=== PATIENT | male | born 1945 | race Caucasian/White ===

== ENCOUNTER 2018-06-11 14:10 | Observation (INO) | payer MEDICARE ==
[~2018-06-11] VITALS: Ht 170.2 cm; Wt 93.7 kg
[~2018-06-11 14:10] MED LIST: CARV3.12 PO; CHOL100040 PO; ERGO500014 PO; EZET10TA26 PO; FINA5TAB41 PO; FISH1CAP63 PO; FLUO40CA49 PO; FURO20TA4 PO; URSO300C4 PO; WARF-57 PO; WARF7.5T49 PO
[2018-06-11] MEDS ORDERED: METHYLPREDNISOLONE SOD SUCC 125MG/2ML VIAL ONE (14:35)
[2018-06-11] MEDS ORDERED: DIAZEPAM 2 MG TAB ONE ×2 (14:36→17:23)
[2018-06-11 17:18] LABS: BASOPHILS % (AUTO) 0.2 % (0.0-5.0); EOSINOPHILS % (AUTO) 0.4 % (0.0-8.0); HEMATOCRIT 40.5 % (42-54); LYMPHOCYTES % (AUTO) 5.6 % (21.0-51.0); MEAN CORPUSCULAR HEMOGLOBIN 30.1 pg (27.0-33.0); MEAN CORPUSCULAR HGB CONC 33.7 g/dL (32.0-36.0); MEAN CORPUSCULAR VOLUME 89.4 fL (79-99); NEUTROPHILS % (AUTO) 90.8 % (40.0-77.0); PLATELET COUNT (AUTO) 376 K/uL (130-400); RED BLOOD CELL COUNT(AUTO) 4.53 MIL/uL (4.50-6.20); RED CELL DISTRIBUTION WIDTH 16.7 % (11.0-15.5); WHITE BLOOD COUNT (AUTO) 11.6 K/uL (4.8-10.8)
[2018-06-11 17:34] LABS: CREATININE 0.9 mg/dL (0.5-1.5); POTASSIUM 4.5 mmol/L (3.5-5.1)
[2018-06-11 17:39] LABS: BILIRUBIN,TOTAL 0.5 mg/dL (0.2-1.0); TOTAL PROTEIN, SERUM 7.6 g/dL (6.0-8.3)
[2018-06-11 17:41] LABS: APPEARANCE,URINE Clear (CLEAR); BILIRUBIN,URINE Negative (NEGATIVE); COLOR,URINE Yellow (YELLOW); GLUCOSE, URINE (UA) Negative (NEGATIVE); KETONES,URINE Negative (NEGATIVE); LEUKOCYTE ESTERASE ,URINE Negative (NEGATIVE); NITRATE,URINE Negative (NEGATIVE); OCCULT BLOOD,URINE Negative (NEGATIVE); PROTEIN,URINE Negative (NEGATIVE); UROBILINOGEN,URINE 0.2 mg/dL (0.2-1.0)
[2018-06-11] MEDS ORDERED: HYDRALAZINE HCL 20 MG/ML VIAL IV PRN (17:45)
[2018-06-11] MEDS ORDERED: ACETAMINOPHEN 325 MG TAB PO PRN (17:45)
[2018-06-11] MEDS ORDERED: MORPHINE SULFATE 2 MG/ML 1ML SYG IV PRN (17:45)
[2018-06-11] MEDS ORDERED: ONDANSETRON HCL 4 MG/2 ML VIAL IV PRN (17:45)
[2018-06-11] MEDS ORDERED: ACETAMINOPHEN-CODEINE 300/30MG TAB PO PRN (17:45)
[2018-06-11 18:39] LABS: ERYTHROCYTE SEDIMENTATION RATE 33 MM/HR (0-20)
[2018-06-11] MEDS: CARVEDILOL 3.125 MG TABLET PO SCH (21:00)
[2018-06-11 21:45] VITALS: BP 172/97
[2018-06-11] MEDS: FUROSEMIDE 20 MG TABLET PO SCH (22:55)
[2018-06-11] MEDS: URSODIOL 300 MG CAPSULE PO SCH (22:55)
[2018-06-11] MEDS: FAMOTIDINE/PF 20 MG/2 ML VIAL IV SCH (22:56)
[2018-06-11 23:00] VITALS: BP 144/77
[2018-06-12 03:00] VITALS: BP 156/83
[2018-06-12 05:43] LABS: HEMATOCRIT 40.5 % (42-54); MEAN CORPUSCULAR HEMOGLOBIN 29.6 pg (27.0-33.0); MEAN CORPUSCULAR HGB CONC 33.4 g/dL (32.0-36.0); MEAN CORPUSCULAR VOLUME 88.7 fL (79-99); NUCLEATED RED BLOOD CELLS 0.1 % (0.0-0.19); PLATELET COUNT (AUTO) 329 K/uL (130-400); RED BLOOD CELL COUNT(AUTO) 4.57 MIL/uL (4.50-6.20); RED CELL DISTRIBUTION WIDTH 16.7 % (11.0-15.5); WHITE BLOOD COUNT (AUTO) 7.1 K/uL (4.8-10.8)
[2018-06-12 05:52] LABS: INR 2.17 (0.85-1.15); PARTIAL THROMBOPLASTIN TIME 40.5 SEC (26.3-35.5); POTASSIUM 4.1 mmol/L (3.5-5.1); PROTHROMBIN TIME 22.4 SEC (9.6-11.6)
[2018-06-12 08:00] VITALS: BP 154/82
[2018-06-12] MEDS ORDERED: TRAM50TA4 PO (08:58)
[2018-06-12] MEDS ORDERED: FLUOXETINE HCL 20 MG CAPSULE PO SCH (09:00)
[2018-06-12] MEDS ORDERED: EZETIMIBE 10 MG TAB PO SCH (09:00)
[2018-06-12 11:00] VITALS: BP 149/73
[2018-06-12] MEDS: FUROSEMIDE 20 MG TABLET PO SCH (11:13)
[2018-06-12] MEDS: URSODIOL 300 MG CAPSULE PO SCH (11:13)
[2018-06-12] MEDS: CARVEDILOL 3.125 MG TABLET PO SCH (11:14)
[2018-06-12] MEDS: FAMOTIDINE/PF 20 MG/2 ML VIAL IV SCH (11:14)
[2018-06-12 16:00] VITALS: BP 151/80
[2018-06-12] MEDS ORDERED: Cholecalciferol (Vitamin D3) (Vitamin D3) 1,000 UNIT PO SCH (17:00)
[2018-06-12] MEDS ORDERED: FINASTERIDE 5 MG TABLET PO SCH (17:00)
[2018-06-12] MEDS ORDERED: WARFARIN SODIUM 5 MG TAB PO SCH (17:00)
[2018-06-12] MEDS ORDERED: FISH OIL 1000 MG/CAP PO SCH (21:00)
[2018-06-18] MEDS ORDERED: ERGOCALCIFEROL (VITAMIN D2) 50,000 UNIT CAPSULE PO SCH (09:00)
== END 2018-06-12 20:15 | disposition home or self-care (01) ==
LOC: EDH 14:10 → EDHIP 17:33 → 3BH 19:48
PROVIDERS: ADMIT Hospitalist; ATTEND Hospitalist
DX: M48.061 Spinal stenosis, lumbar region without neurogenic claudication (principal); M47.896 Other spondylosis, lumbar region; C34.90 Malignant neoplasm of unspecified part of unspecified bronchus or lung; E66.01 Morbid (severe) obesity due to excess calories; G62.9 Polyneuropathy, unspecified; I25.10 Atherosclerotic heart disease of native coronary artery without angina pectoris; I48.91 Unspecified atrial fibrillation; Z85.118 Personal history of other malignant neoplasm of bronchus and lung; Z87.891 Personal history of nicotine dependence; Z90.2 Acquired absence of lung [part of]; Z95.1 Presence of aortocoronary bypass graft; Z79.01 Long term (current) use of anticoagulants; Z88.8 Allergy status to other drugs, medicaments and biological substances; Z83.6 Family history of other diseases of the respiratory system; Z82.49 Family history of ischemic heart disease and other diseases of the circulatory system
CPT/HCPCS: 36415 ×2; 72148; 72170; 80048; 80053; 81003; 85025; 85027; 85610; 85651; 85730; 93005; 96374; 96376; 97116; 97161; 99284; G0378 ×27; G8978; G8979; G8980; G8981; G8982; G8983; J2930; J3490 ×2

== ENCOUNTER 2018-09-28 16:18 | Inpatient (IN) | payer MEDICARE ==
[~2018-09-28] VITALS: Ht 170.2 cm; Wt 87.7 kg
[~2018-09-28 16:18] MED LIST changes: +AMLO5TAB4 PO; +BENZ1LOZ68 MM; -CHOL100040 PO; -FISH1CAP63 PO; +IPRA3AMP24 IH; +LOSA50TA64 PO; +SENN-183 PO; -WARF-57 PO; -WARF7.5T49 PO
[2018-09-28 16:53] LABS: APPEARANCE,URINE Clear (CLEAR); BILIRUBIN,URINE Negative (NEGATIVE); COLOR,URINE Yellow (YELLOW); GLUCOSE, URINE (UA) Negative (NEGATIVE); KETONES,URINE Negative (NEGATIVE); LEUKOCYTE ESTERASE ,URINE Negative (NEGATIVE); NITRATE,URINE Negative (NEGATIVE); OCCULT BLOOD,URINE Negative (NEGATIVE); PH,URINE 6.5 (5.0-8.0); PROTEIN,URINE Negative (NEGATIVE)
[2018-09-28 17:20] LABS: BASOPHILS % (AUTO) 0.3 % (0.0-5.0); EOSINOPHILS % (AUTO) 1.3 % (0.0-8.0); HEMATOCRIT 30.1 % (42-54); LYMPHOCYTES % (AUTO) 28.4 % (21.0-51.0); MEAN CORPUSCULAR HEMOGLOBIN 24.6 pg (27.0-33.0); MEAN CORPUSCULAR HGB CONC 31.6 g/dL (32.0-36.0); MEAN CORPUSCULAR VOLUME 77.8 fL (79-99); MONOCYTES % (AUTO) 48.9 % (3.0-13.0); NEUTROPHILS % (AUTO) 21.1 % (40.0-77.0); NUCLEATED RED BLOOD CELLS 2.7 % (0.0-0.19); RED BLOOD CELL COUNT(AUTO) 3.87 MIL/uL (4.50-6.20); WHITE BLOOD COUNT (AUTO) 1.4 K/uL (4.8-10.8)
[2018-09-28] MEDS ORDERED: ACETAMINOPHEN 325 MG TAB ONE (17:37)
[2018-09-28 17:47] LABS: CREATININE 0.8 mg/dL (0.5-1.5); POTASSIUM 3.2 mmol/L (3.5-5.1)
[2018-09-28 17:52] LABS: ALBUMIN 2.5 g/dL (3.5-5.0); BILIRUBIN,TOTAL 0.3 mg/dL (0.2-1.0); TOTAL PROTEIN, SERUM 6.8 g/dL (6.0-8.3)
[2018-09-28 17:58] LABS: PLATELET COUNT (AUTO) 314 K/uL (130-400)
[2018-09-28] MEDS ORDERED: ZOSYN 3.375GM+NS 50ML 50 ML IV ONE (18:43)
[2018-09-28] MEDS ORDERED: IPRATROPIUM/ALBUTEROL SULFATE 3 ML SOLUTION IH ONE (18:47)
[2018-09-28] MEDS: IPRATROPIUM/ALBUTEROL SULFATE 3 ML SOLUTION IH SCH ×2 (19:00→21:47)
[2018-09-28] MEDS ORDERED: VANCOMYCIN PROTOCOL PER PHARMACY IV SCH (19:00)
[2018-09-28] MEDS ORDERED: SODIUM CHLORIDE 0.9% 1000ML 1,000 ML IV SCH (19:00)
[2018-09-28 21:18] VITALS: BP 121/63
[2018-09-28] MEDS: VANCOMYCIN 1GM+NS 250ML 250 ML IV SCH (22:33)
[2018-09-28] MEDS: TBO-FILGRASTIM 480 MCG/0.8 ML ML SQ SCH (22:33)
[2018-09-29 00:22] VITALS: BP 134/59
[2018-09-29] MEDS: ZOSYN 3.375GM+NS 50ML 50 ML IV SCH ×3 (01:39→17:00)
[2018-09-29] MEDS: IPRATROPIUM/ALBUTEROL SULFATE 3 ML SOLUTION IH SCH ×6 (03:00→21:56)
[2018-09-29 04:00] VITALS: BP 124/64
[2018-09-29 08:00] VITALS: BP 135/67
[2018-09-29] MEDS: ONDANSETRON HCL 4 MG/2 ML VIAL IVP PRN ×3 (08:58→20:55)
[2018-09-29] MEDS: VANCOMYCIN 1GM+NS 250ML 250 ML IV SCH ×2 (08:58→20:51)
[2018-09-29 08:59] LABS: BASOPHILS % (AUTO) 0.5 % (0.0-5.0); EOSINOPHILS % (AUTO) 0.2 % (0.0-8.0); HEMATOCRIT 29.8 % (42-54); LYMPHOCYTES % (AUTO) 11.4 % (21.0-51.0); MEAN CORPUSCULAR HEMOGLOBIN 24.9 pg (27.0-33.0); MEAN CORPUSCULAR HGB CONC 32.2 g/dL (32.0-36.0); MEAN CORPUSCULAR VOLUME 77.4 fL (79-99); MONOCYTES % (AUTO) 35.5 % (3.0-13.0); NEUTROPHILS % (AUTO) 52.4 % (40.0-77.0); PLATELET COUNT (AUTO) 271 K/uL (130-400); RED BLOOD CELL COUNT(AUTO) 3.85 MIL/uL (4.50-6.20); RED CELL DISTRIBUTION WIDTH 19.2 % (11.0-15.5); WHITE BLOOD COUNT (AUTO) 2.1 K/uL (4.8-10.8)
[2018-09-29] MEDS ORDERED: ERGO50CA PO (10:40)
[2018-09-29] MEDS ORDERED: NAPR250T4 PO (10:40)
[2018-09-29] MEDS ORDERED: CLOT15C TP (10:40)
[2018-09-29] MEDS ORDERED: LACT10SO9 PO (10:40)
[2018-09-29 11:58] LABS: BAND NEUTROPHILS % (MANUAL) 19 % (0-2); BASOPHILS % (MANUAL) 1 % (0-2); EOSINOPHILS % (MANUAL) 1 % (1-6); LYMPHOCYTES % (MANUAL) 27 % (22-44); MAN.DIFF COMMENT-IMPRESSION MANUAL DIFFERENTIAL; MONOCYTES % (MANUAL) 28 % (2-9); SEGMENTED NEUTROPHILS % 24 % (40-70)
[2018-09-29 11:59] LABS: PLATELET MORPHOLOGY COMMENT ADEQUATE
[2018-09-29 12:00] VITALS: BP 104/66
--- NOTE | 2018-09-29 14:07 | NUR ---
PATIENT APPEARS SOB AND TACHYPNEIC AFTER AMBULATION BUT DID NOT DESATURATE. PATIENT REFUSED O2 ON STANDBY TO RELIEVE SOB DURING AMBULATION. Addendum: 09/29/18 at 1410 by RT AMAN RT Amended: Links added.
[2018-09-29 16:00] VITALS: BP 123/63
--- NOTE | 2018-09-29 16:47 | NUR ---
INITIAL: Met with pt this afternoon to discuss dcp. Prior to admission pt was living w spouse, he is independent w ambulation and ADLs. He does not own any DME or receive services. Per pt he feels safe and comfortable to return home at [place]. CM to continue to follow and wait for Md recommendations. Addendum: 09/29/18 at 1653 by VENTURA HOLDER Amended: Links added.
[2018-09-29] MEDS: FINASTERIDE 5 MG TABLET PO SCH (18:11)
[2018-09-29] MEDS: TBO-FILGRASTIM 480 MCG/0.8 ML ML SQ SCH (18:11)
[2018-09-29] MEDS: CARVEDILOL 3.125 MG TABLET PO SCH (20:51)
[2018-09-29 21:31] VITALS: BP 139/64
[2018-09-30] VITALS (7 sets, daily range): BP systolic 114–163; BP diastolic 59–77
[2018-09-30] MEDS: ZOSYN 3.375GM+NS 50ML 50 ML IV SCH ×3 (01:58→17:47)
[2018-09-30] MEDS: IPRATROPIUM/ALBUTEROL SULFATE 3 ML SOLUTION IH SCH ×7 (02:04→22:45)
[2018-09-30 04:51] LABS: CREATININE 0.8 mg/dL (0.5-1.5); MAGNESIUM 1.3 mg/dL (1.80-2.40)
[2018-09-30 05:15] LABS: POTASSIUM 2.6 mmol/L (3.5-5.1)
[2018-09-30] MEDS ORDERED: LIDOCAINE HCL-MPF 1% 2ML VIAL IVP PRN (07:30)
[2018-09-30] MEDS ORDERED: POTASSIUM CHLORIDE 10% ELIXIR 20 MEQ/15 ML UDCUP PO PRN (07:30)
[2018-09-30] MEDS: POTASSIUM CHLORIDE 20 MEQ ERTAB PO PRN ×3 (08:22→20:28)
[2018-09-30] MEDS: CARVEDILOL 3.125 MG TABLET PO SCH ×2 (08:24→20:29)
[2018-09-30] MEDS: POTASSIUM CHLORIDE 20MEQ/100ML 100 ML IV PRN (08:24)
[2018-09-30] MEDS: ERGOCALCIFEROL PO SCH (08:25)
[2018-09-30] MEDS: EZETIMIBE 10 MG TAB PO SCH (08:25)
[2018-09-30] MEDS: VANCOMYCIN 1GM+NS 250ML 250 ML IV SCH (08:25)
--- NOTE | 2018-09-30 12:00 | NUR ---
MD JOHNATHAN SANDS VISITED WITH PATIENT. POC DISCUSSED. ALL QUESTIONS ANSWERED. PATIENT AWARE. WILL CONTINUE TO BE OBSERVED. CALL LIGHT WITHIN REACH. WILL CONTINUE TO BE OBSERVED. Addendum: 09/30/18 at 1614 by ALVARO OHARA RN RN Amended: Links added.
[2018-09-30] MEDS ORDERED: MAGNESIUM 4GM PREMIX 100ML 100 ML IV PRN (12:15)
[2018-09-30] MEDS ORDERED: VANCOMYCIN 1GM+NS 250ML 250 ML IV SCH (14:00)
[2018-09-30] MEDS: FINASTERIDE 5 MG TABLET PO SCH (17:48)
[2018-09-30] MEDS: TBO-FILGRASTIM 480 MCG/0.8 ML ML SQ SCH (17:48)
[2018-09-30] MEDS ORDERED: MAGNESIUM 2GM PREMIX 50ML 50 ML IV ONE (20:24)
[2018-10-01] MEDS ORDERED: MAGNESIUM 2GM PREMIX 50ML 50 ML IV ONE (00:06)
[2018-10-01] MEDS: ZOSYN 3.375GM+NS 50ML 50 ML IV SCH ×3 (00:07→16:20)
[2018-10-01] MEDS: IPRATROPIUM/ALBUTEROL SULFATE 3 ML SOLUTION IH SCH ×6 (02:29→21:59)
[2018-10-01 04:00] VITALS: BP 119/65
[2018-10-01 04:28] LABS: BASOPHILS % (AUTO) 0.1 % (0.0-5.0); LYMPHOCYTES % (AUTO) 1.8 % (21.0-51.0); MEAN CORPUSCULAR HEMOGLOBIN 23.9 pg (27.0-33.0); MEAN CORPUSCULAR HGB CONC 31.7 g/dL (32.0-36.0); MEAN CORPUSCULAR VOLUME 75.5 fL (79-99); MONOCYTES % (AUTO) 6.5 % (3.0-13.0); NEUTROPHILS % (AUTO) 91.6 % (40.0-77.0); PLATELET COUNT (AUTO) 271 K/uL (130-400); RED BLOOD CELL COUNT(AUTO) 3.45 MIL/uL (4.50-6.20)
[2018-10-01 04:35] LABS: WHITE BLOOD COUNT (AUTO) 39.7 K/uL (4.8-10.8)
[2018-10-01 04:38] LABS: CREATININE 0.8 mg/dL (0.5-1.5)
[2018-10-01 04:40] LABS: POTASSIUM 2.9 mmol/L (3.5-5.1)
[2018-10-01] MEDS: POTASSIUM CHLORIDE 20MEQ/100ML 100 ML IV PRN (05:30)
[2018-10-01] MEDS: POTASSIUM CHLORIDE 20 MEQ ERTAB PO PRN ×2 (05:31→16:20)
[2018-10-01 05:49] LABS: BAND NEUTROPHILS % (MANUAL) 21 % (0-2); LYMPHOCYTES % (MANUAL) 6 % (22-44); MAN.DIFF COMMENT-IMPRESSION MANUAL DIFFERENTIAL; MONOCYTES % (MANUAL) 6 % (2-9); SEGMENTED NEUTROPHILS % 67 % (40-70)
[2018-10-01 05:50] LABS: PLATELET MORPHOLOGY COMMENT ADEQUATE
[2018-10-01 07:42] VITALS: BP 118/57
[2018-10-01] MEDS: CARVEDILOL 3.125 MG TABLET PO SCH ×2 (08:48→20:30)
[2018-10-01] MEDS: EZETIMIBE 10 MG TAB PO SCH (08:48)
[2018-10-01] MEDS: ERGOCALCIFEROL PO SCH (09:00)
[2018-10-01 11:17] VITALS: BP 102/58
[2018-10-01] MEDS ORDERED: DIPHENOXYLATE HCL/ATROPINE 2.5/0.025 MG TAB PO PRN (14:15)
[2018-10-01] MEDS: PREDNISONE 20 MG TABLET PO SCH (16:20)
[2018-10-01] MEDS: FINASTERIDE 5 MG TABLET PO SCH (16:20)
[2018-10-01 16:28] VITALS: BP 129/66
[2018-10-01 19:17] VITALS: BP 152/76
[2018-10-01 23:31] VITALS: BP 130/70
[2018-10-02] MEDS: IPRATROPIUM/ALBUTEROL SULFATE 3 ML SOLUTION IH SCH ×4 (01:56→13:55)
[2018-10-02] MEDS: ZOSYN 3.375GM+NS 50ML 50 ML IV SCH ×2 (01:58→09:08)
[2018-10-02 03:34] VITALS: BP 130/77
[2018-10-02] MEDS: POTASSIUM CHLORIDE 20 MEQ ERTAB PO PRN ×3 (06:18→13:27)
[2018-10-02 07:39] VITALS: BP 129/71
[2018-10-02] MEDS: ERGOCALCIFEROL PO SCH (09:00)
[2018-10-02] MEDS: CARVEDILOL 3.125 MG TABLET PO SCH (09:07)
[2018-10-02] MEDS: EZETIMIBE 10 MG TAB PO SCH (09:07)
[2018-10-02] MEDS: PREDNISONE 20 MG TABLET PO SCH (09:08)
[2018-10-02 11:09] VITALS: BP 134/72
[2018-10-02] MEDS ORDERED: NAPROXEN 250 MG TAB PO PRN (14:30)
--- NOTE | 2018-10-02 15:05 | NUR ---
PT DISCHARGE . ORDS REVIEWED DISCHARGE SUMMARY , . AND FOLLOWUP APPT. . SL TO HIS FOREARM .DC . DENIES ANY SOB. WILL BE CALLING DR Herson DELUCA FOR HIS FOLLOWUP CHEMO THERAPY. . CARE
[2018-10-02] MEDS ORDERED: LACTULOSE 20 GM/30 ML UDCUP PO SCH (21:00)
[2018-10-03] MEDS ORDERED: CLOTRIMAZOLE 30 GM CREAM.GM. TP SCH (09:00)
== END 2018-10-02 15:08 | disposition home or self-care (01) | DRG 871 ==
LOC: EDH 16:18 → EDHIP 18:20 → 4BH 21:18
PROVIDERS: ADMIT Internal Medicine Hematology & Oncology; ATTEND Internal Medicine Hematology & Oncology
DX: A41.9 Sepsis, unspecified organism (principal); J18.9 Pneumonia, unspecified organism; D70.3 Neutropenia due to infection; D89.9 Disorder involving the immune mechanism, unspecified; E78.5 Hyperlipidemia, unspecified; I10 Essential (primary) hypertension; I25.10 Atherosclerotic heart disease of native coronary artery without angina pectoris; I48.91 Unspecified atrial fibrillation; R50.81 Fever presenting with conditions classified elsewhere; Z82.3 Family history of stroke; Z82.49 Family history of ischemic heart disease and other diseases of the circulatory system; Z82.5 Family history of asthma and other chronic lower respiratory diseases; Z85.118 Personal history of other malignant neoplasm of bronchus and lung; Z87.891 Personal history of nicotine dependence; Z95.1 Presence of aortocoronary bypass graft; Z88.5 Allergy status to narcotic agent; Z88.8 Allergy status to other drugs, medicaments and biological substances; Z92.21 Personal history of antineoplastic chemotherapy
CPT/HCPCS: 36415; 71045; 71250; 80048; 80053; 80202; 81003; 83605; 83735; 84132; 85025; 85060; 87040; 94640; 94664; G0378; J2405; J2543; J3370; J3475; J3480; J3490

== ENCOUNTER 2018-10-13 08:41 | Emergency (ER) | payer MEDICARE ==
[~2018-10-13 08:41] MED LIST changes: -AMLO5TAB4 PO; -BENZ1LOZ68 MM; +CLOT15C TP; -ERGO500014 PO; +ERGO50CA PO; +LACT10SO9 PO; -LOSA50TA64 PO; +NAPR250T4 PO; -SENN-183 PO
[2018-10-13 09:36] LABS: BASOPHILS % (AUTO) 0.7 % (0.0-5.0); EOSINOPHILS % (AUTO) 0.6 % (0.0-8.0); HEMATOCRIT 26.7 % (42-54); LYMPHOCYTES % (AUTO) 1.5 % (21.0-51.0); MEAN CORPUSCULAR HEMOGLOBIN 24.7 pg (27.0-33.0); MEAN CORPUSCULAR HGB CONC 32.5 g/dL (32.0-36.0); MEAN CORPUSCULAR VOLUME 75.8 fL (79-99); MONOCYTES % (AUTO) 0.9 % (3.0-13.0); NEUTROPHILS % (AUTO) 96.3 % (40.0-77.0); NUCLEATED RED BLOOD CELLS 0.1 % (0.0-0.19); PLATELET COUNT (AUTO) 133 K/uL (130-400); RED BLOOD CELL COUNT(AUTO) 3.52 MIL/uL (4.50-6.20); RED CELL DISTRIBUTION WIDTH 20.5 % (11.0-15.5); WHITE BLOOD COUNT (AUTO) 6.9 K/uL (4.8-10.8)
[2018-10-13] MEDS ORDERED: ONDANSETRON HCL 4 MG/2 ML VIAL ONE (09:39)
[2018-10-13] MEDS ORDERED: MORPHINE SULFATE 4 MG/1ML SYG ONE (09:40)
[2018-10-13] MEDS ORDERED: CEFTRIAXONE SODIUM 1 GM ONE (09:40)
[2018-10-13 09:47] LABS: CREATININE 0.7 mg/dL (0.5-1.5); POTASSIUM 3.2 mmol/L (3.5-5.1)
[2018-10-13] MEDS ORDERED: SODIUM CHLORIDE 0.9% 1000ML 1,000 ML IV ONE (09:47)
[2018-10-13 09:52] LABS: ALBUMIN 2.2 g/dL (3.5-5.0); BILIRUBIN,TOTAL 0.5 mg/dL (0.2-1.0); TOTAL PROTEIN, SERUM 5.6 g/dL (6.0-8.3)
[2018-10-13] MEDS ORDERED: POTASSIUM CHLORIDE 20 MEQ ERTAB PO ONE (10:43)
[2018-10-13 11:05] LABS: APPEARANCE,URINE Clear (CLEAR); BILIRUBIN,URINE Negative (NEGATIVE); COLOR,URINE Yellow (YELLOW); GLUCOSE, URINE (UA) Negative (NEGATIVE); KETONES,URINE Negative (NEGATIVE); LEUKOCYTE ESTERASE ,URINE Negative (NEGATIVE); NITRATE,URINE Negative (NEGATIVE); OCCULT BLOOD,URINE Negative (NEGATIVE); PROTEIN,URINE Negative (NEGATIVE); UROBILINOGEN,URINE 0.2 mg/dL (0.2-1.0)
== END 2018-10-13 12:11 | disposition home or self-care (01) ==
LOC: EDH 08:41
DX: J02.0 Streptococcal pharyngitis (principal); C34.90 Malignant neoplasm of unspecified part of unspecified bronchus or lung; I10 Essential (primary) hypertension; E78.5 Hyperlipidemia, unspecified; Z88.8 Allergy status to other drugs, medicaments and biological substances; Z79.899 Other long term (current) drug therapy
CPT/HCPCS: 36415; 71045; 80053; 81003; 83605; 85025; 87040; 96374; 96375; 99285; J0696; J2270; J2405; J7030

== ENCOUNTER 2018-12-13 01:50 | Inpatient (IN) | payer MEDICARE ==
[~2018-12-13] VITALS: Ht 170.2 cm; Wt 85.0 kg
[~2018-12-13 01:50] MED LIST changes: -EZET10TA26 PO; +EZET10TA48 PO
[2018-12-13 02:53] LABS: BASOPHILS % (AUTO) 0.8 % (0.0-5.0); HEMATOCRIT 29.6 % (42-54); MEAN CORPUSCULAR HEMOGLOBIN 26.7 pg (27.0-33.0); MEAN CORPUSCULAR HGB CONC 32.2 g/dL (32.0-36.0); MEAN CORPUSCULAR VOLUME 82.8 fL (79-99); MONOCYTES % (AUTO) 4.3 % (3.0-13.0); NEUTROPHILS % (AUTO) 93.9 % (40.0-77.0); NUCLEATED RED BLOOD CELLS 0.2 % (0.0-0.19); PLATELET COUNT (AUTO) 246 K/uL (130-400); RED BLOOD CELL COUNT(AUTO) 3.58 MIL/uL (4.50-6.20); RED CELL DISTRIBUTION WIDTH 23.4 % (11.0-15.5); WHITE BLOOD COUNT (AUTO) 14.3 K/uL (4.8-10.8)
[2018-12-13] MEDS ORDERED: SODIUM CHLORIDE 0.9% 500ML 500 ML IV ONE (02:55)
[2018-12-13] MEDS ORDERED: IPRATROPIUM/ALBUTEROL SULFATE 3 ML SOLUTION IH ONE ×3 (02:57→14:30)
[2018-12-13] MEDS ORDERED: METOPROLOL TARTRATE 1 MG/ML 5ML VIAL IV ONE (02:59)
[2018-12-13 03:00] LABS: CREATININE 0.9 mg/dL (0.5-1.5); POTASSIUM 3.6 mmol/L (3.5-5.1)
[2018-12-13 03:01] LABS: INR 1.11 (0.85-1.15); PARTIAL THROMBOPLASTIN TIME 24.3 SEC (26.3-35.5); PROTHROMBIN TIME 11.6 SEC (9.6-11.6)
[2018-12-13 03:05] LABS: ALBUMIN 2.3 g/dL (3.5-5.0); TOTAL PROTEIN, SERUM 6.3 g/dL (6.0-8.3)
[2018-12-13 03:07] LABS: CREATINE KINASE, TOTAL 40 U/L (21-232); MYOGLOBIN 46 ng/mL (10-92); TROPONIN I < 0.04 ng/mL (0.00-0.06)
[2018-12-13 03:17] LABS: ABG BASE EXCESS 2.4 mmol/L (-2.0-3.0); ABG HCO3 24.8 mmol/L (21.0-28.0); ABG OXYGEN SATURATION 91.4 % (95.0-99.0); ABG PCO2 33 mmHg (35-48)
[2018-12-13] MEDS ORDERED: IOHEXOL-350 75 ML VIAL IV ONE (03:56)
[2018-12-13] MEDS ORDERED: AZITHROMYCIN 500MG+NS 250ML 250 ML IV ONE (04:19)
[2018-12-13] MEDS ORDERED: CEFTRIAXONE SODIUM 1 GM ONE (04:20)
[2018-12-13] MEDS: SODIUM CHLORIDE 0.9% 1000ML 1,000 ML IV SCH ×2 (05:39→21:07)
[2018-12-13] MEDS ORDERED: METHYLPREDNISOLONE SOD SUCC 125MG/2ML VIAL IVP ONE (05:45)
[2018-12-13] MEDS ORDERED: HYDROCODONE/ACETAMINOPHEN 5/325 MG TAB PO PRN ×2 (05:45)
[2018-12-13] MEDS ORDERED: ONDANSETRON HCL 4 MG/2 ML VIAL IV PRN (05:45)
[2018-12-13] MEDS ORDERED: ACETAMINOPHEN 325 MG TAB PO PRN ×2 (05:45)
[2018-12-13] MEDS ORDERED: VANCOMYCIN PROTOCOL PER PHARMACY IV PRN (05:45)
[2018-12-13] MEDS ORDERED: NITROGLYCERIN 0.4 MG SL TAB SL PRN (05:45)
[2018-12-13 06:26] LABS: CRP QUANTITATIVE 56.8 mg/L (0.00-9.0)
[2018-12-13] MEDS ORDERED: METHYLPREDNISOLONE SOD SUCC 125MG/2ML VIAL ONE (06:39)
[2018-12-13] MEDS ORDERED: SODIUM CHLORIDE 0.9% 1000ML 1,000 ML IV ONE (06:39)
[2018-12-13] MEDS: IPRATROPIUM/ALBUTEROL SULFATE 3 ML SOLUTION IH SCH ×4 (07:00→23:20)
[2018-12-13 07:03] LABS: APPEARANCE,URINE CLEAR (CLEAR); BILIRUBIN,URINE NEGATIVE (NEGATIVE); COLOR,URINE YELLOW (YELLOW); GLUCOSE, URINE (UA) NEGATIVE (NEGATIVE); KETONES,URINE NEGATIVE (NEGATIVE); LEUKOCYTE ESTERASE ,URINE NEGATIVE (NEGATIVE); NITRATE,URINE NEGATIVE (NEGATIVE); OCCULT BLOOD,URINE NEGATIVE (NEGATIVE); PROTEIN,URINE NEGATIVE (NEGATIVE); UROBILINOGEN,URINE 0.2 mg/dL (0.2-1.0)
[2018-12-13] MEDS ORDERED: SODIUM CHLORIDE 3% FOR INHALATION 4 ML/AMP VIAL.NEB IH ONE ×3 (07:09→13:51)
[2018-12-13] MEDS: LEVOFLOXACIN 500 MG/D5W 100 ML 100 ML IV SCH (07:45)
[2018-12-13] MEDS ORDERED: VANCOMYCIN 1.25 GM in SODIUM CHLORIDE 0.9% 250 ML IV SCH (08:00)
[2018-12-13] MEDS ORDERED: COMPOUND IV REFRIGERATED 1 EACH IVSOLN MISC PRN (08:00)
[2018-12-13] MEDS ORDERED: FAMOTIDINE 20MG TAB 20 MG TAB PO SCH (09:00)
[2018-12-13 09:23] VITALS: BP 139/80
[2018-12-13] MEDS ORDERED: OMEP20TA2 PO (09:48)
[2018-12-13] MEDS ORDERED: NAPROXEN 250 MG TAB PO PRN (10:00)
[2018-12-13] MEDS: CLOTRIMAZOLE 30 GM CREAM.GM. TP SCH (10:15)
[2018-12-13 12:00] VITALS: BP 129/75
--- NOTE | 2018-12-13 12:00 | NUR ---
ROUNDS VISITED WITH PATIENT. POC DISCUSSED. NEW ORDERS RECEIVED AND CARRIED OUT. VITALS STABLE. AFEBRILE. RESP EVEN AND UNLABORED. NO SOB NOTED AT THIS TIME. O2 ON AT 3LPM VIA NASAL CANNULA. TOLERATING NEB TREATMENTS WELL. SPOUSE AT BEDSIDE TO ASSIST WITH ADLS. NO SIGNS OF DISTRESS NOTED AT THIS TIME. CALL LIGHT WITHIN REACH. WILL CONTINUE TO BE OBSERVED. Addendum: 12/13/18 at 8533 by ALVARO OHARA RN RN Amended: Links added.
[2018-12-13] MEDS: LORAZEPAM 1 MG TABLET PO PRN (12:48)
[2018-12-13] MEDS ORDERED: ZOSYN 3.375GM+NS 50ML 50 ML IV SCH (13:00)
[2018-12-13] MEDS ORDERED: METHYLPREDNISOLONE SOD SUCC 125MG/2ML VIAL IV SCH (14:00)
[2018-12-13 16:00] VITALS: BP 129/68
[2018-12-13] MEDS: METHYLPREDNISOLONE SOD SUCC 125MG/2ML VIAL IVP SCH (17:09)
[2018-12-13] MEDS: FINASTERIDE 5 MG TABLET PO SCH (17:09)
--- NOTE | 2018-12-13 18:57 | NUR ---
INITIAL Met w spouse and pt at bedside- pt on oxygen 2 lpnc states used to have oxygen but then was doing so much better he took the oxygen back.ahp is carrier. will use again if need. requesting nebulizer; advised pt and spouse will wait for discharge; then if needs oxygen will get everything at [facility] . verbalized understanding. Mostly indp of adls, has walker, cane -uses occaisionally, no troubl ewiht steps, bathroom handicapped equipped. DCP is home Addendum: 12/13/18 at 1900 by FLY STOVALL RN CM Amended: Links added.
[2018-12-13 20:00] VITALS: BP 123/96
[2018-12-13] MEDS: URSODIOL 300 MG CAPSULE PO SCH (21:07)
[2018-12-13] MEDS: CARVEDILOL 3.125 MG TABLET PO SCH (21:08)
[2018-12-13] MEDS: LACTULOSE 20 GM/30 ML UDCUP PO SCH (21:08)
[2018-12-13] MEDS: ZOSYN 3.375GM+NS 50ML 50 ML IV SCH (21:08)
[2018-12-14] VITALS: BP 131/73
[2018-12-14] MEDS ORDERED: ONDANSETRON HCL 4 MG/2 ML VIAL ONE (00:14)
[2018-12-14] MEDS: METHYLPREDNISOLONE SOD SUCC 125MG/2ML VIAL IVP SCH ×2 (00:17→06:13)
[2018-12-14] MEDS ORDERED: ONDANSETRON HCL 4 MG/2 ML VIAL IVP PRN (00:30)
[2018-12-14] MEDS: LORAZEPAM 1 MG TABLET PO PRN ×3 (03:17→22:11)
[2018-12-14 04:00] VITALS: BP 140/81
[2018-12-14] MEDS: ZOSYN 3.375GM+NS 50ML 50 ML IV SCH ×3 (05:26→21:00)
[2018-12-14] MEDS: SODIUM CHLORIDE 0.9% 1000ML 1,000 ML IV SCH (06:25)
[2018-12-14] MEDS: IPRATROPIUM/ALBUTEROL SULFATE 3 ML SOLUTION IH SCH (06:45)
[2018-12-14] MEDS ORDERED: NON-FORMULARY MEDICATION 1 EACH (Omeprazole Magnesium (Prilosec Otc) 20 MG) PO SCH (07:30)
[2018-12-14 07:58] VITALS: BP 145/79
[2018-12-14] MEDS: EZETIMIBE 10 MG TAB PO SCH (08:46)
[2018-12-14] MEDS: FLUOXETINE HCL 20 MG CAPSULE PO SCH (08:46)
[2018-12-14] MEDS: LACTULOSE 20 GM/30 ML UDCUP PO SCH ×2 (08:47→22:11)
[2018-12-14] MEDS: CARVEDILOL 3.125 MG TABLET PO SCH (08:47)
[2018-12-14] MEDS: LEVOFLOXACIN 500 MG/D5W 100 ML 100 ML IV SCH (08:47)
[2018-12-14] MEDS: CLOTRIMAZOLE 30 GM CREAM.GM. TP SCH (08:47)
[2018-12-14] MEDS: URSODIOL 300 MG CAPSULE PO SCH ×2 (08:56→22:11)
[2018-12-14] MEDS: ERGOCALCIFEROL PO SCH (09:00)
[2018-12-14] MEDS ORDERED: FUROSEMIDE 20 MG TABLET PO SCH (09:00)
[2018-12-14] MEDS ORDERED: FUROSEMIDE 10 MG/ML 4ML VIAL IV SCH (09:30)
[2018-12-14] MEDS ORDERED: VANCOMYCIN PROTOCOL PER PHARMACY IV SCH (09:30)
--- NOTE | 2018-12-14 09:50 | NUR ---
CARDIOLOGY CONSULT VISITED WITH PATIENT AND SPOUSE AT SIDE. POC DISCUSSED. NEW ORDERS RECEIVED AND CARRIED OUT. PATIENTA ND FAMILY AWARE. ALSO AWARE. WILL CONTINUE TO BE OBSERVED. Addendum: 12/14/18 at 1950 by ALVARO OHARA RN RN Amended: Links added.
[2018-12-14] MEDS ORDERED: COMPOUND IV REFRIGERATED 1 EACH IVSOLN MISC PRN (10:00)
[2018-12-14] MEDS: VANCOMYCIN 1.25 GM in SODIUM CHLORIDE 0.9% 250 ML IV SCH ×2 (10:16→22:19)
[2018-12-14] MEDS: MAG HYDROX/AL HYDROX/SIMETH ES 30 ML SUSP UDCUP PO PRN (10:17)
[2018-12-14] MEDS: METOPROLOL TARTRATE 1 MG/ML 5ML VIAL IV PRN (10:17)
[2018-12-14] MEDS ORDERED: POTASSIUM CHLORIDE 20MEQ/100ML 100 ML IV PRN (10:30)
[2018-12-14] MEDS ORDERED: POTASSIUM CHLORIDE 10% ELIXIR 20 MEQ/15 ML UDCUP PO PRN (10:30)
[2018-12-14] MEDS ORDERED: POTASSIUM CHLORIDE 20 MEQ ERTAB PO PRN (10:30)
[2018-12-14] MEDS ORDERED: LIDOCAINE HCL-MPF 1% 2ML VIAL IVP PRN (10:30)
[2018-12-14] MEDS: IPRATROPIUM 0.5 MG/2.5 ML INH IH SCH ×3 (11:24→23:12)
[2018-12-14] MEDS ORDERED: SODIUM CHLORIDE 3% FOR INHALATION 4 ML/AMP VIAL.NEB IH ONE ×2 (11:28→18:00)
[2018-12-14 11:35] VITALS: BP 146/83
[2018-12-14 16:00] VITALS: BP 137/71
[2018-12-14] MEDS: FINASTERIDE 5 MG TABLET PO SCH (17:00)
[2018-12-14 20:00] VITALS: BP 118/66
[2018-12-14] MEDS ORDERED: SODIUM CHLORIDE 0.9% 500ML 500 ML IV ONE (20:49)
[2018-12-14] MEDS: APIXABAN 5 MG TABLET PO SCH (22:11)
[2018-12-14] MEDS: CARVEDILOL 6.25 MG TABLET PO SCH (22:11)
[2018-12-15] VITALS (7 sets, daily range): BP systolic 125–146; BP diastolic 64–88
[2018-12-15] MEDS: METHYLPREDNISOLONE SOD SUCC 125MG/2ML VIAL IVP SCH ×3 (00:30→11:44)
[2018-12-15] MEDS: LORAZEPAM 1 MG TABLET PO PRN ×2 (04:11→16:22)
[2018-12-15] MEDS: ZOSYN 3.375GM+NS 50ML 50 ML IV SCH ×3 (05:03→21:10)
[2018-12-15] MEDS: IPRATROPIUM 0.5 MG/2.5 ML INH IH SCH ×3 (06:34→18:16)
--- NOTE | 2018-12-15 07:55 | NUR ---
PATIENT UPDATE PATIENT TOLERATED THE BIPAP OVERNIGHT AT 40%. WAS VERY UPSET AT 0400, TOOK OFF THE BIPAP MASK AND STATED THAT HE DOESN'T WANT IT ANYMORE. EXPLAINED THE NEED FOR IT FOR PROPER OXYGENATION.O2 SAT WAS DOWN TO 58% AFTERWARDS, PT STATED THAT HE DOESN'T WANT ANYTHING DONE, STATED THAT HE'S GOT AN ADVANCED DIRECTIVE AND HE WANTS TO BE DNR. LORAZEPAM GIVEN TO THE PT, RT CALLED WHO FINALLY WAS ABLE TO CONVINCE THE PT TO GET BACK ON THE BIPAP MACHINE. DR. DELUCA ROUNDED THIS AM AND WAS MADE AWARE ABOUT THE DNR STATUS THAT THE SIGNED AND THE WAY HE REFUSED TO COOPERATE WITH THE BIPAP MOST OF THE TIME.
[2018-12-15] MEDS: FLUOXETINE HCL 20 MG CAPSULE PO SCH (08:22)
[2018-12-15] MEDS: APIXABAN 5 MG TABLET PO SCH ×2 (08:22→21:11)
[2018-12-15] MEDS: URSODIOL 300 MG CAPSULE PO SCH ×2 (08:23→21:11)
[2018-12-15] MEDS: EZETIMIBE 10 MG TAB PO SCH (08:23)
[2018-12-15] MEDS: FUROSEMIDE 20 MG TABLET PO SCH (08:23)
[2018-12-15] MEDS: CARVEDILOL 6.25 MG TABLET PO SCH (08:24)
[2018-12-15] MEDS: CLOTRIMAZOLE 30 GM CREAM.GM. TP SCH (08:24)
[2018-12-15] MEDS: LACTULOSE 20 GM/30 ML UDCUP PO SCH (08:24)
[2018-12-15] MEDS: VANCOMYCIN 1.25 GM in SODIUM CHLORIDE 0.9% 250 ML IV SCH ×2 (08:26→21:40)
[2018-12-15 08:57] LABS: BASOPHILS % (AUTO) 0.2 % (0.0-5.0); HEMATOCRIT 25.8 % (42-54); LYMPHOCYTES % (AUTO) 1.1 % (21.0-51.0); MEAN CORPUSCULAR HGB CONC 33.1 g/dL (32.0-36.0); MEAN CORPUSCULAR VOLUME 81.5 fL (79-99); MONOCYTES % (AUTO) 0.2 % (3.0-13.0); NEUTROPHILS % (AUTO) 98.5 % (40.0-77.0); NUCLEATED RED BLOOD CELLS 0.1 % (0.0-0.19); PLATELET COUNT (AUTO) 76 K/uL (130-400); RED BLOOD CELL COUNT(AUTO) 3.17 MIL/uL (4.50-6.20); RED CELL DISTRIBUTION WIDTH 22.7 % (11.0-15.5); WHITE BLOOD COUNT (AUTO) 6.2 K/uL (4.8-10.8)
[2018-12-15] MEDS: ERGOCALCIFEROL PO SCH (09:00)
--- NOTE | 2018-12-15 09:40 | NUR ---
ROUNDS-CARDIOLOGY VISITED WITH PATIENT. POC DISCUSSED. NEW ORDERS RECEIVED AND CARRIED OUT. 2DECHO COMPLETED. PER NO CARDIOVERSION NEEDED, JUST 2 WEEKS OF ANTIPLATELET COAGULATION NEEDED, FOLLOW UP WITH ON SUNDAY. SPOUSE AT BEDSIDE. CALL LIGHT WITHIN REACH. WILL CONTINUE TO BE OBSERVED. Addendum: 12/15/18 at 1937 by ALVARO OHARA RN RN Amended: Links added.
[2018-12-15] MEDS: ACETYLCYSTEINE 10% 100MG/ML 4ML VIAL IH SCH ×2 (11:13→18:16)
[2018-12-15] MEDS: FINASTERIDE 5 MG TABLET PO SCH (16:22)
[2018-12-15] MEDS: MAG HYDROX/AL HYDROX/SIMETH ES 30 ML SUSP UDCUP PO PRN (16:22)
[2018-12-15] MEDS ORDERED: LACTULOSE 20 GM/30 ML UDCUP PO PRN (20:15)
[2018-12-15] MEDS: CARVEDILOL 12.5 MG TABLET PO SCH (21:10)
--- NOTE | 2018-12-15 21:37 | NUR ---
RX CALLED PHARMACY IN [place], REMOTE PHARMACY FOR THE NIGHT, SPOKE WITH ALEK AND INFORMED ABOUT THE VANCO THROUGH=11.8. PHARMACIST STATED TO CONTINUE MED. WILL MEDICATE PT.
--- NOTE | 2018-12-15 21:50 | NUR ---
ASSESS SHIFT ASSESSMENT DONE, PLEASE REFER TO CPOE. DUE MEDS ADMINISTERED, TOLERATED WELL. KEPT PT ON BIPAP. VERY COOPERATIVE AT THIS TIME. KEPT RESTED AND COMFORTABLE. CALL LIGHT WITHIN REACH. SPOUSE AT BEDSIDE IN ATTENDANCE TO NEEDS AT THIS TIME.
[2018-12-16] MEDS: ACETYLCYSTEINE 10% 100MG/ML 4ML VIAL IH SCH ×5 (00:03→23:37)
[2018-12-16] MEDS: IPRATROPIUM 0.5 MG/2.5 ML INH IH SCH ×5 (00:03→23:37)
[2018-12-16] MEDS: METHYLPREDNISOLONE SOD SUCC 125MG/2ML VIAL IVP SCH ×4 (00:17→18:19)
--- NOTE | 2018-12-16 02:00 | NUR ---
ROUNDS PT RESTING WELL, SLEPT AT LONG INTERVALS. STILL ON BIPAP. NO DISTRESS NOTED. KEPT COMFORTABLE IN BED. CALL LIGHT WITHIN REACH. SPOUSE ASLEEP AT BEDSIDE. WILL MONITOR CLOSELY.
[2018-12-16] MEDS: ZOSYN 3.375GM+NS 50ML 50 ML IV SCH ×3 (02:52→18:19)
[2018-12-16 03:00] VITALS: BP 135/68
--- NOTE | 2018-12-16 06:00 | NUR ---
O2 PT REQUESTED TO BE PLACED ON NC SO HE COULD DRINK COFFEE. RT IN AND PLACED PT ON NC AT 5LPM. PCP IN AND GAVE PT A BED BATH AND WEIGHED. PT'S O2 SAT DROPPED TO 75%. PLACED PT ON SEMI-ENGLE'S POSITION. RT CALLED BACK TO PLACE PT ON BIPAP. PT WAS PLACED ON BIPAP AND O2 SAT INCREASED TO 95%. FOR MORE CARE.
[2018-12-16] MEDS: LORAZEPAM 1 MG TABLET PO PRN ×2 (07:02→20:39)
[2018-12-16 07:30] VITALS: BP 135/79
[2018-12-16] MEDS: ERGOCALCIFEROL PO SCH (09:00)
[2018-12-16] MEDS: APIXABAN 5 MG TABLET PO SCH ×2 (10:06→20:39)
[2018-12-16] MEDS: URSODIOL 300 MG CAPSULE PO SCH ×2 (10:06→20:39)
[2018-12-16] MEDS: EZETIMIBE 10 MG TAB PO SCH (10:06)
[2018-12-16] MEDS: CARVEDILOL 12.5 MG TABLET PO SCH ×2 (10:07→20:39)
[2018-12-16] MEDS: FUROSEMIDE 20 MG TABLET PO SCH (10:07)
[2018-12-16] MEDS: FLUOXETINE HCL 20 MG CAPSULE PO SCH (10:07)
[2018-12-16] MEDS: VANCOMYCIN 1.25 GM in SODIUM CHLORIDE 0.9% 250 ML IV SCH ×2 (10:12→22:16)
[2018-12-16] MEDS: CLOTRIMAZOLE 30 GM CREAM.GM. TP SCH (10:14)
[2018-12-16 11:00] VITALS: BP 149/52
[2018-12-16 12:34] LABS: BASOPHILS % (AUTO) 0.7 % (0.0-5.0); HEMATOCRIT 25.9 % (42-54); LYMPHOCYTES % (AUTO) 0.8 % (21.0-51.0); MEAN CORPUSCULAR HEMOGLOBIN 26.1 pg (27.0-33.0); MEAN CORPUSCULAR VOLUME 81.5 fL (79-99); MONOCYTES % (AUTO) 0.3 % (3.0-13.0); NEUTROPHILS % (AUTO) 98.2 % (40.0-77.0); PLATELET COUNT (AUTO) 50 K/uL (130-400); RED BLOOD CELL COUNT(AUTO) 3.18 MIL/uL (4.50-6.20); RED CELL DISTRIBUTION WIDTH 22.7 % (11.0-15.5); WHITE BLOOD COUNT (AUTO) 6.2 K/uL (4.8-10.8)
--- NOTE | 2018-12-16 13:32 | NUR ---
CHART CHECK COMPLETED. Pt IS A 73 YEAR OLD MALE ADMITTED SECONDARY TO [facility]. Pt HAS A PAST MEDICAL HISTORY SIGNIFICANT FOR HYPERLIPIDEMIA, LUNG CANCER S/P RADIATION THERAPY. CT ANGIO CHEST; BILATERAL GROUNDGLASS PULMONARY INFILTRATES MORE ON THE RIGHT. PT CURRENTLY ON CONTINUOUS BIPAP. NURSE RAEGAN REPORTS NO ISSUES SWALLOWING. WAITER/WAITRESS COUNTER SPOKE TO Pt AND AND STATED Pt MUST BE ABLE TO TOLERATE NASAL CANNULA DURING P.O. THEY STATE Pt HAS BEEN ABLE TO BE ON NASAL CANNULA DURING MEALS. SWALLOW EVAL IS RECOMMENDED AT THIS TIME SECONDARY TO BIPAP USE AND POOR RESPIRATORY STATUS. WAITER/WAITRESS COUNTER WILL FOLLOW PT. NO FOOD OR LIQUID PROVIDED AT THIS TIME SECONDARY TO BEING ON BIPAP. Addendum: 12/16/18 at 1337 by BRYAN CATALAN [facility] Amended: Links added.
[2018-12-16 16:00] VITALS: BP 135/80
--- NOTE | 2018-12-16 16:03 | NUR ---
DR. DEWITT IN TO SEE PT. TELEMETRY STRIP FAXED TO FLOOR NOW PER HIS REQUEST.
[2018-12-16] MEDS: FINASTERIDE 5 MG TABLET PO SCH (18:25)
--- NOTE | 2018-12-16 19:50 | NUR ---
AGITATION PT IS TRYING TO REMOVE HIS BIPAP MASK. TRIED TO CALM PT DOWN BUT IS ASKING FOR HIS , EXPLAINED THAT HIS ALREADY HAD GONE HOME. WILL MONITOR CLOSELY. Addendum: 12/17/18 at 0132 by CAROL SON RN RN Amended: Links added.
[2018-12-16 20:00] VITALS: BP 122/70
--- NOTE | 2018-12-16 20:40 | NUR ---
MEDS PT STILL RESTLESS, ASKING FOR HIS . PT TRYING TO REMOVE HIS MASK AGAIN. DUE MEDS ADMINISTERED, ATIVAN GIVEN FOR AGITATION. PT TOLERATED MEDS WELL. RE-ORIENTED PT TO TIME AND SPACE, REMINDED HIM THAT HIS HAD ALREADY GONE HOME. WILL MONITOR CLOSELY. Addendum: 12/17/18 at 0145 by CAROL SON RN RN Amended: Links added.
--- NOTE | 2018-12-16 21:30 | NUR ---
[facility] PCP IN AND GAVE PT A BED BATH. PT IS VERY UNCOOPERATIVE AND TRYING TO PULL ON HIS LINES AND MASK. BRUISING AND SKIN TEARS NOTED ON PT'S RT FOREARM AND LEFT ELBOW AREAS. SKIN TEARS INCURRED BY PT FROM MOVING HIS ARMS AND HITTING IT ON THE SIDE RAILS. SEIZURE PADS APPLIED TO SIDE RAILS TO PROTECT PT. CLEANSED SKIN TEARS AND OPSITE APPLIED. IVF ON RT HAND IS LEAKING. DISCONTINUED PIV WITH CATHETER INTACT. POSITIONED PT ON SEMI-ENGLE'S POSITION. WILL MONITOR CLOSELY.
--- NOTE | 2018-12-16 22:17 | NUR ---
Pt extremely anxious keeps pulling and taking off bipap mask.Spoke to primary nurse so she is aware.
[2018-12-16 23:00] VITALS: BP 162/107
--- NOTE | 2018-12-16 23:00 | NUR ---
AFIB PT IS HAVING AFIB ON THE 130-140'S HR. NOTED TO STILL HAVING DYSPNEA DESPITE BIPAP. PT IS NOT AGITATED AT THIS TIME. RT IN AND GAVE BREATHING TREATMENT. MEDICATED WITH METOPROLOL IV. WILL RE-ASSESS PT.
[2018-12-16] MEDS: METOPROLOL TARTRATE 1 MG/ML 5ML VIAL IV PRN (23:04)
[2018-12-17 00:10] VITALS: BP 144/82
--- NOTE | 2018-12-17 00:20 | NUR ---
PAGED PT IS MOANING AND STARTED TO GET RESTLESS AGAIN. CLAIMS OF GENERALIZED PAINS. PAGED DR DELUCA VIA ANSWERING SERVICE. CALLED BACK AND REFERRED PT'S CONDITION AT THIS TIME. NEW ORDERS GIVEN, PLEASE REFER TO CPOE. WILL MEDICATE PT. WILL RE-ASSESS PT.
[2018-12-17] MEDS ORDERED: LORAZEPAM 2 MG/ML 1 ML VIAL IVP PRN (00:30)
[2018-12-17] MEDS ORDERED: MORPHINE SULFATE 2 MG/ML 1ML SYG IVP PRN (00:30)
[2018-12-17] MEDS ORDERED: MORPHINE SULFATE 2 MG/ML 1ML SYG ONE (00:33)
[2018-12-17] MEDS: METHYLPREDNISOLONE SOD SUCC 125MG/2ML VIAL IVP SCH ×2 (00:35→05:36)
--- NOTE | 2018-12-17 02:00 | NUR ---
ROUNDS PT IS CALM AND QUITE AT THIS TIME. KEPT UNDISTURBED FOR NOW. WILL MONITOR PT.
[2018-12-17] MEDS: ZOSYN 3.375GM+NS 50ML 50 ML IV SCH ×2 (02:13→10:46)
[2018-12-17 04:00] VITALS: BP 99/55
--- NOTE | 2018-12-17 05:07 | NUR ---
ROUNDS PT FAIRLY ASLEEP WITH RESPIRATIONS EVEN AND UNLABORED. BIPAP ON. KEPT COMFORTABLE. FOR MORE CARE.
[2018-12-17] MEDS: IPRATROPIUM 0.5 MG/2.5 ML INH IH SCH ×2 (06:11→11:24)
[2018-12-17] MEDS: ACETYLCYSTEINE 10% 100MG/ML 4ML VIAL IH SCH ×2 (06:11→11:25)
[2018-12-17 08:00] VITALS: BP 87/55
--- NOTE | 2018-12-17 08:00 | NUR ---
1ST. AM ROUNDS:UNRESPONSIVE, ON C-PAP, FIO2 AT 45%, BREATHING LABORED AND RESP. SHALLOW. SKIN PALE, WARM TO TOUCH. SPOUSE AT SIDE HOLDING PT'S HAND.
[2018-12-17] MEDS: FLUOXETINE HCL 20 MG CAPSULE PO SCH (09:00)
[2018-12-17] MEDS: EZETIMIBE 10 MG TAB PO SCH (09:00)
[2018-12-17] MEDS: FUROSEMIDE 20 MG TABLET PO SCH (09:00)
[2018-12-17] MEDS: APIXABAN 5 MG TABLET PO SCH (09:00)
[2018-12-17] MEDS: URSODIOL 300 MG CAPSULE PO SCH (09:00)
[2018-12-17] MEDS: ERGOCALCIFEROL PO SCH (09:00)
[2018-12-17] MEDS: CARVEDILOL 12.5 MG TABLET PO SCH (09:00)
--- NOTE | 2018-12-17 09:00 | NUR ---
ALL MEDS. HELD PER REQUEST AND DR. DELUCA IN AGREEMENT
--- NOTE | 2018-12-17 10:00 | NUR ---
ARMS VERY EDEMATOUS AND COVERED WITH BRUISES, SKIN TEARS TO BOTH ARMS FROM HITTING BED RAILS DURING THE NIGHT WAS REPORTED BY PM SHIFT
[2018-12-17] MEDS: VANCOMYCIN 1.25 GM in SODIUM CHLORIDE 0.9% 250 ML IV SCH (10:52)
[2018-12-17 11:00] VITALS: BP 95/45
--- NOTE | 2018-12-17 12:30 | NUR ---
HOSPICE ORDER NOW IN PLACE AND S.S. HAS BEEN NOTIFIED.
--- NOTE | 2018-12-17 13:41 | NUR ---
IN HOSPICE SW informed by Brooke nurse that Dr Merritt ordered GIP eval. is in agreement with this. SW spoke to Ant, who is out of the building rt now. states she is agreeable and will be back in building soon. gave consent for referral to [facility]. Sw spoke to Ayde and made referral. Ayde to meet with this afternoon.
--- NOTE | 2018-12-17 15:15 | NUR ---
INPT evjimmy FREEMAN recd call from [facility] who states [facility] are here to evaluate pt for inpt hospice
--- NOTE | 2018-12-17 15:40 | NUR ---
INPT HOSPICE ACCEPTED PT
--- NOTE | 2018-12-17 16:00 | NUR ---
[facility] HERE FOR GIP EVAL AND HAS BEEN ACCEPTED. ORDERS IN PLACE AND ALL MEDS. HAVE BEEN STOPPED. WILL CONTINUE C-PAP AND THAT WILL BE DC'D IN AM. BOSS CATH OK TO REMAIN IN PLACE.
== END 2018-12-17 14:52 | disposition hospice, inpatient (51) | DRG 871 ==
LOC: EDH 01:50 → EDHIP 05:30 → 3AH 08:33
PROVIDERS: ADMIT Internal Medicine Hematology & Oncology; ATTEND Internal Medicine Hematology & Oncology
PROC: 5A09457 Assistance with Respiratory Ventilation, 24-96 Consecutive Hours, Continuous Positive Airway Pressure (ICD-10-PCS; principal; 2018-12-14)
DX: A41.9 Sepsis, unspecified organism (principal); J96.01 Acute respiratory failure with hypoxia; J18.1 Lobar pneumonia, unspecified organism; J96.02 Acute respiratory failure with hypercapnia; C34.90 Malignant neoplasm of unspecified part of unspecified bronchus or lung; J44.0 Chronic obstructive pulmonary disease with (acute) lower respiratory infection; J44.1 Chronic obstructive pulmonary disease with (acute) exacerbation; I48.1 Persistent atrial fibrillation; I10 Essential (primary) hypertension; E78.5 Hyperlipidemia, unspecified; F17.200 Nicotine dependence, unspecified, uncomplicated; I25.10 Atherosclerotic heart disease of native coronary artery without angina pectoris; I48.0 Paroxysmal atrial fibrillation; I73.9 Peripheral vascular disease, unspecified; Y95 Nosocomial condition; Z66 Do not resuscitate; Z95.1 Presence of aortocoronary bypass graft; Z90.2 Acquired absence of lung [part of]; Z88.8 Allergy status to other drugs, medicaments and biological substances; Z51.11 Encounter for antineoplastic chemotherapy; Z82.3 Family history of stroke; Z83.6 Family history of other diseases of the respiratory system; Z82.49 Family history of ischemic heart disease and other diseases of the circulatory system
CPT/HCPCS: 36415; 36600; 71045; 71275; 80053; 80202; 81003; 82550; 82803; 83605; 83874; 83880; 84145; 84484; 85025; 85610; 85730; 86140; 87040; 87088; 87486; 87581; 87633; 87798; 93005; 93306; 94640; 94660; 94664; 97039; 99291; G0378; J0456; J0696; J1940; J1956; J2405; J2543; J2930; J3370; J3490; J7030; J7040; J7608; Q9967